=== PATIENT | female | born 1980 | race Native Hawaiian/Other Pacific Islander ===

== ENCOUNTER 2019-10-05 06:55 | Day surgery (SDC) | payer BC, OTHER ==
[~2019-10-05] VITALS: Ht 167.6 cm; Wt 91.3 kg
[~2019-10-05 06:55] MED LIST: Naprosyn500 MG PO; Percocet 5-3251 EACH PO; Ultram50 MG PO
--- NOTE | 2019-10-05 07:17 | NUR ---
INTO SDS ADMISSION TO UNIT STARTED. VSS ALERT ORIENTED FAMILY MEMBER IN WAITING AREA.
--- NOTE | 2019-10-05 12:19 | NUR ---
SMALL AMT DRAINAGE TO GAUZE, PT AMBULATED WITH STEADY GAIT AND VOIDED WITHOUT DIFFICULTY. GAUZE REPLACED. SUPPLIES GIVEN TO SPOUSE FOR HOME CARE. PT REMAINS DROWSY, BUT STABLE. REPORTS 2/10 PAIN. DC'D VIA TO PRIVATE CAR.
== END 2019-10-05 12:25 | disposition home or self-care (01) ==
LOC: ORSCMMR 06:55 → ORD 08:15 → ORSCMMR 08:15
PROVIDERS: Surgery
PROC: 06BY0ZC Excision of Hemorrhoidal Plexus, Open Approach (ICD-10-PCS; principal; 2019-10-05 08:15)
DX: K64.4 Residual hemorrhoidal skin tags (principal)
CPT/HCPCS: 88304; J1100; J2250; J2405; J2704; J3010; J7120

== ENCOUNTER → 2019-10-26 | Outpatient (CLI) | payer BC, OTHER | END | disposition home or self-care (01) | LOC: PLD 08:32 → LAB SHORT 08:32 | DX: R93.89 Abnormal findings on diagnostic imaging of other specified body structures (principal) | CPT/HCPCS: 88305 ==

== ENCOUNTER → 2019-11-13 | Outpatient (CLI) | payer BC, OTHER ==
[2019-11-13 11:31] LABS: BASOPHILS ABSOLUTE AUTO 0.09 K/mm3 (0.00-0.23); BASOPHILS PERCENT AUTO 2 % (0-2); EOSINOPHILS ABSOLUTE AUTO 0.13 K/mm3 (0.00-0.68); EOSINOPHILS PERCENT AUTO 2 % (0-6); Hematocrit 25.1 % (33.0-51.0); Hemoglobin 7.3 g/dL (11.5-16.0); IMMATURE GRAN ABSOLUTE AUTO 0.01 K/mm3 (0.00-0.10); IMMATURE GRAN PERCENT AUTO 0 % (0-1); LYMPHOCYTES ABSOLUTE AUTO 2.44 K/mm3 (0.84-5.20); LYMPHOCYTES PERCENT AUTO 42 % (21-46); MONOCYTES ABSOLUTE AUTO 0.57 K/mm3 (0.16-1.47); MONOCYTES PERCENT AUTO 10 % (4-13); Mean Corpuscular HGB 20.4 pg (26.0-34.0); Mean Corpuscular HGB Conc 29.1 g/dL (31.5-36.5); Mean Corpuscular Volume 70 fL (80-100); Mean Platelet Volume 8.6 fL (9.1-12.4); NEUTROPHILS ABSOLUTE AUTO 2.62 K/mm3 (1.96-9.15); NEUTROPHILS PERCENT AUTO 45 % (41-73); Platelet Count 362 K/mm3 (150-400); RDW Coefficient Variation 16.7 % (11.7-14.2); RDW Standard Deviation 42.4 fL (35.1-46.3); Red Blood Cell Count 3.58 M/mm3 (3.80-5.20); White Blood Cell Count 5.86 K/mm3 (4.00-11.30)
[2019-11-13 11:41] LABS: Alanine Aminotransfer (ALT/SGP 21 U/L (12-78); Albumin, Blood 3.7 g/dL (3.4-5.0); Albumin/Globulin Ratio 0.9 (0.8-1.8); Alk Phos 43 U/L (40-126); Anion Gap 6 mmol/L (6-16); Aspartate Aminotrans (AST/SGOT 21 U/L (12-37); Bilirubin, Total 0.3 mg/dL (0.1-1.0); Blood Urea Nitrogen 10 mg/dL (8-24); Bun/Creatinine Ratio 10.4 (12.0-20.0); CO2, Blood 29 mmol/L (21-32); Calcium, Blood 9.3 mg/dL (8.5-10.1); Chloride, Blood 104 mmol/L (98-108); Creatinine, Blood 0.96 mg/dL (0.40-1.00); Glomerular Filtration Rate >60 (60-); Glucose, Blood 91 mg/dL (70-99); Potassium, Blood 4.2 mmol/L (3.5-5.5); Sodium, Blood 139 mmol/L (136-145); Total Protein, Blood 7.7 g/dL (6.4-8.2)
== END | disposition home or self-care (01) ==
LOC: LAB SHORT 11:24 → LAB EV 11:24
PROVIDERS: Physician Assistant
DX: R73.03 Prediabetes (principal); R53.83 Other fatigue; R35.8 Other polyuria; Z86.2 Personal history of diseases of the blood and blood-forming organs and certain disorders involving the immune mechanism
CPT/HCPCS: 80053; 82728; 83036; 83540; 83550; 85025

== ENCOUNTER → 2021-04-09 | Outpatient (CLI) | payer BC, OTHER ==
[2021-04-09 14:01] LABS: Candida species (DNA Probe) Negative (NEGATIVE); G. vaginalis (DNA Probe) Negative (NEGATIVE); T. vaginalis (DNA Probe) Negative (NEGATIVE)
== END ==
LOC: LAB 11:46 → LAB SHORT 11:46
PROVIDERS: Obstetrics & Gynecology
DX: B37.3 Candidiasis of vulva and vagina (principal)
CPT/HCPCS: 87480; 87510; 87660

== ENCOUNTER → 2021-06-14 | Outpatient (CLI) | payer BC, OTHER ==
[2021-06-15 11:52] LABS: Candida species (DNA Probe) Negative (NEGATIVE); G. vaginalis (DNA Probe) Negative (NEGATIVE); T. vaginalis (DNA Probe) Negative (NEGATIVE)
== END | disposition home or self-care (01) ==
LOC: LAB SHORT 13:36 → LAB 13:36
PROVIDERS: Obstetrics & Gynecology
DX: N76.0 Acute vaginitis (principal)
CPT/HCPCS: 87480; 87510; 87660